=== PATIENT | male | born 1970 | race Caucasian/White ===

== ENCOUNTER → 2024-09-02 11:07 | Outpatient (REF) | payer BC, SELFPAY | LOC: HWRAD 11:07 | PROVIDERS: ATTENDING PHYSICIAN Nurse Practitioner Family | DX: R05.1 Acute cough (principal) | CPT/HCPCS: 71046 ==

== ENCOUNTER 2024-12-28 06:12 | Day surgery (SDC) | payer BC, SELFPAY | END 2024-12-28 11:27 | disposition home or self-care (01) | LOC: GI 06:12 | PROVIDERS: ATTENDING PHYSICIAN Surgery | DX: Z12.11 Encounter for screening for malignant neoplasm of colon (principal); Z86.0100 Personal history of colon polyps, unspecified | CPT/HCPCS: G0105 ==